=== PATIENT | female | born 1985 ===

== ENCOUNTER 2024-11-10 11:36 | Emergency (ER) | payer MEDICARE, SELFPAY ==
[2024-11-10 11:40] VITALS: BP 140/89; PULSE 118; RESP 24; TEMP 36.9; O2SAT 93
[2024-11-10 11:47] VITALS: BP 140/89; PULSE 118; RESP 24; TEMP 36.9; O2SAT 93
[2024-11-10 12:04] VITALS: BP 140/89; PULSE 118; RESP 24; TEMP 36.9; O2SAT 93
--- NOTE | 2024-11-10 12:06 | ED.GENADUL_ITS ---
Discharge Plan Disposition Patient Disposition: Home Condition: Good Discharge Details Clinical Impression: Pneumonia, Asthma exacerbation Primary Care Provider: Unknown,Unknown ED Provider: Jonathan Arthur Home Meds and New Rx's Prescriptions: New prednisone 50 mg tablet 50 mg PO DAILY Qty: 5 0RF levofloxacin 750 mg tablet 750 mg PO DAILY Qty: 6 0RF Discharge Instructions Instructions: Asthma, Adult ED, Pneumonia, Adult ED Additional Instructions: At this time your ultrasound shows evidence of pneumonia. Your heart rate and s ymptoms have improved after the breathing treatment and fluids. I do feel that your symptoms are combination of an asthma exacerbation with pneumonia. Please follow-up closely with your primary care provider for reassessment. We did have to start you on levofloxacin secondary to your previous resistance profiles as well as your allergies. If you notice any pain or tenderness in your joints or ligaments, which could be a side effect of levofloxacin, please stop the medication and return immediately for reassessment. If you notice any worsening of your symptoms, or any new symptoms such as vomiting, diarrhea, fever, chills, shortness of breath, chest pain, numbness, weakness, or fainting , please return immediately to the emergency department for reevaluation. Please follow up with your primary care provider as soon as possible for reassessment and reevaluation. As always, it was a pleasure participating in your medical care today. HPI General Date/Time Provider Initiated Documentation: 11/10/24 11:41 . HPI Narrative: This is a 38-year-old female with a past medical history of diabetes, tobacco use, asthma, who is normally seen at [facility], who has had a few episodes of pneumonia over the last 6 to 7 months. She continues to smoke despite this. She states that for the last few days she has had a cough with intermittent fever. Cough is productive. No pleuritic chest pain. No chest pressure or chest heaviness or tightness. No history of blood clot or pulmonary embolism. She is not currently on any antibiotics. She does have inhalers at home, which she states has been slightly helpful. She denies any other complaints at this time. No other modifying factors. She denies any hemoptysis. Related Data Home Medications ?Medication ?Instructions ?Recorded ?Confirmed levofloxacin 750 mg tablet 750 mg PO DAILY #6 tabs prednisone 50 mg tablet 50 mg PO DAILY #5 tabs 11/10 Previous Rx's ?Medication ?Instructions ?Recorded levofloxacin 750 mg tablet 750 mg PO DAILY #6 tabs prednisone 50 mg tablet 50 mg PO DAILY #5 tabs 11/10 Allergies Allergy/AdvReac Type Severity Reaction Status Date / Time acetaminophen (From Vicodin) Allergy Mild vomitting Verified 11/10/24 11:47 cephalexin Allergy Mild rash Verified 11/10/24 11:47 hydrocodone (From Vicodin) Allergy Mild vomitting Verified 11/10/24 11:47 latex Allergy Mild rash Verified 11/10/24 11:47 Penicillins Allergy Mild Anaphylaxis Verified 11/10/24 11:47 sulfamethoxazole (From Allergy Mild kidney Verified 11/10/24 11:47 Bactrim) failure trimethoprim (From Bactrim) Allergy Mild kidney Verified 11/10/24 11:47 failure Bleach (Sodium Hypochlorite) Allergy Anaphylaxis Verified 11/10/24 11:47 General Stated Complaint: RespSymp SARITA: 3 Exam Narrative Exam Narrative: 1.Const: Well-nourished, Well-developed, appearing stated age 2.Eyes: PERRL, no conjunctival injection, and symmetrical lids. 3.ENT: Atraumatic external nose and ears. Moist MM. Neck: Symmetric, trachea midline, No thyromegaly. 4.CVS: +S1/S2, Peripheral pulses 2+ and equal in all extremities. Brisk capillary refill in all extremities. 5.RESP: Diffuse wheezes throughout, mild crackles on the right. No rhonchi. 6.GI: Soft, Nontender/Nondistended, No hepatosplenomegaly. No guarding or rebound. 7.MSK: Normocephalic/Atraumatic, Extremities w/o deformity or ttp No cyanosis or clubbing, Normal movement of all extremities. No pitting edema or calf tenderness. 8.Skin: Warm, Dry. No rashes or lesions. 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 Sensation grossly intact, no focal neurologic deficits. 10.Psych: (AAO) x3. Appropriate mood and affect Course Vital Signs Vital signs: Vital Signs Temperature 36.9 C 11/10/24 11:40 Pulse 118 H 11/10/24 11:40 Respiratory Rate 24 11/10/24 11:40 Blood Pressure 140/89 11/10/24 11:40 Pulse Oximetry 93 11/10/24 11:40 Temperature 36.9 C 11/10/24 12:04 Pulse 118 H 11/10/24 12:04 Respiratory Rate 24 11/10/24 12:04 Blood Pressure 140/89 11/10/24 12:04 Blood Pressure Position Sitting 11/10/24 11:47 Pulse Oximetry 93 11/10/24 12:04 Oxygen Delivery Method Room Air 11/10/24 12:04 Oxygen Flow Rate 0 11/10/24 11:47 Pain Level 0 11/10/24 12:04 Medical Decision Making This is a 38-year-old female with a past medical history of diabetes, tobacco use, asthma, who is normally seen at [facility], who has had a few episodes of pneumonia over the last 6 to 7 months. She continues to smoke despite this. She states that for the last few days she has had a cough with intermittent fever. Cough is productive. No pleuritic chest pain. No chest pressure or chest heaviness or tightness. No history of blood clot or pulmonary embolism. She is not currently on any antibiotics. She does have inhalers at home, which she states has been slightly helpful. She denies any other complaints at this time. No other modifying factors. She denies any hemoptysis. Exam demonstrates well-appearing female, she is mildly tachycardic but no fever here. Bedside limited ultrasound demonstrates isolated pneumonia in the right lung macdonald. She states that that is where the pneumonia has been in the past. Last pneumonia was about 3 months ago. With the wheezes I do suspect a component of an asthma exacerbation. She is mildly tachycardic but appears mildly dehydrated as well. Heart rate in the 1 8 teens, and jumps up to the 120s to 30s when she ambulates. She has no pleuritic chest pain, no history of PE. She denies control or estrogen use. Symptoms appear inconsistent with PE otherwise. The patient states that she has been resistant to Augmentin and azithromycin in the past, and had to use levofloxacin last time. I discussed the risks and benefits of tendinopathy's from fluoroquinolone use, and she understands. Will give a dose of levofloxacin now for treatment, we will start the patient on steroids, will give a breathing treatment, monitor closely and reassess. Additionally she has multiple allergies to other antibiotics which does make treatment somewhat challenging. I do not feel that doxycycline would be an appropriate monotherapy for her at this stage. 3:30 PM Patient was given 2 L of IV fluids, breathing treatment, antibiotics and steroids. She feels much better and is requesting to go home. She states that she does not feel that she needs to be here anymore and would like to leave. Blood work did show mild white count, but she remains afebrile. Heart rate has notably improved. Electrolytes show minimally elevated potassium at 5.3, however she has no peaking of T waves on telemetry. Potassium corrected with IV fluids and nebulizer. Patient is stable for discharge. Patient does not want inpatient admission at this time. Patient will be discharged home. Discussed red flags which to return. Prescriptions for levofloxacin and prednisone have b een sent. I have extensively reviewed the treatment plan and discharge instructions with the patient. I have addressed all patient concerns at this time. The patient was made aware of what symptoms to monitor for that would warrant a return to the emergency department. Discussed the plan with the patient, they demonstrate verbal understanding and agreement with our assessment and plan at this time. The documentation in this chart was dictated using [employer] dictation software. Please excuse any dictation errors. PFSH All Active Problems (Updated 11/10/24 @ 15:40 by Jonathan Arthur DO) Asthma exacerbation (Acute) Pneumonia (Acute) Social History Smoking/Tobacco Use Status: Current every day Smoking risk assessment performed?: Yes POCUS Exam (ED) Limited Thoracic Lung Exam DATE OF EXAM: 11/10/24 TIME OF EXAM: 15:32 PROVIDER THAT PERFORMED THE STUDY: Jonathan Arthur IS THIS A REPEAT EXAM DURING THIS ENCOUNTER: No REASON FOR EXAM: Pneumonia VISUALIZED STRUCTURES: right lateral, left lateral, right posterior and left posterior PERTINENT FINDINGS/IMPRESSION: Pneumonia DIFFERENTIAL DIAGNOSES: Pneumonia and right middle lung field Exam complete
[2024-11-10] MEDS: predniSONE 20 MG TAB 60 MG PO (12:15)
[2024-11-10] MEDS: levoFLOXacin 500 MG, levoFLOXacin 250 MG 750 MG PO (12:16)
[2024-11-10] MEDS: Albuterol/Ipratropium 3 ML UPD VIAL UPD (12:16)
[2024-11-10 13:51] LABS: Abs Immature Grans 0.11 10^3/uL (0.0-0.06); Absolute Neutrophil Count 10.45 10^3/uL (1.2-6.7); BE (Venous) 2 mmol/L (-2-3); Basophils % 0.4 %; Eosinophils % 0.8 %; HCO3 (Venous) 27 mmol/L (23-28); HCT 42.6 % (36.0-46.0); HGB 13.4 g/dL (11.2-15.7); Immature Grans % 0.8 %; Lymphocytes % 19.3 %; MCH 27.1 pg (27.0-33.0); MCHC 31.5 % (32.0-36.0); MCV 86 fL (80-95); MPV 10.4 fL (8.0-11.0); Monocytes % 4.7 %; O2 Sat (Venous) 51 %; Platelet Count 324 10^3/uL (130-400); RBC 4.94 10^6/uL (3.93-5.22); RDW 15.1 % (11.7-14.6); RDW-SD 47.3 fL; TCO2 (Venous) 24 mmol/L (24-29); WBC 14.12 10^3/uL (4.4-10.8); pCO2 (Venous) 44 mmHg (41-51); pO2 (Venous) 26 mmHg
[2024-11-10] MEDS: Lactated Ringers 1,000 ML 1000 ML IV (13:53)
[2024-11-10 13:55] LABS: Absolute Basophil Count 0.06 10^3/uL (0.0-0.2); Absolute Eosinophil Count 0.11 10^3/uL (0.0-0.7); Absolute Lymphocyte Count 2.73 10^3/uL (1.2-3.4); Absolute Monocyte Count 0.66 10^3/uL (0.1-0.8)
[2024-11-10 14:18] LABS: ALT 32 U/L (14-59); AST 23 U/L (15-37); Albumin 3.5 g/dL (3.4-5.0); Alkaline Phosphatase 112 U/L (46-116); Anion Gap 9.8 mmol/L (3-11); BUN 12 mg/dL (7-18); Bilirubin, Total 0.4 mg/dL (0.2-1.0); CO2 28.2 mmol/L (21.0-32.0); CREATININE 0.9 mg/dL (0.55-1.02); Calcium 9.7 mg/dL (8.5-10.1); Chloride 95 mmol/L (98-107); Estimated GFR 84.44 (mL/min/1.73m2); Glucose 351 mg/dL (74-106); Potassium 5.3 mmol/L (3.5-5.1); Sodium 133 mmol/L (136-145); Total Protein 8.9 g/dL (6.4-8.2)
[2024-11-10 14:27] LABS: COVID-19 PCR Negative (Negative); Influenza A PCR Negative (Negative); Influenza B PCR Negative (Negative); RSV PCR Negative (Negative)
[2024-11-10 14:28] LABS: Source Nasopharynx
[2024-11-10 14:54] VITALS: BP 125/79; PULSE 115; RESP 22; O2SAT 95
[2024-11-10] MEDS: Ketorolac 15 MG/ML VIAL IVP (14:59)
[2024-11-10] MEDS: Normal Saline 1,000 ML 1000 ML IV (15:00)
[2024-11-10 15:46] VITALS: BP 128/61; PULSE 111; RESP 20; O2SAT 94
== END 2024-11-10 15:57 | disposition home or self-care (01) ==
PROVIDERS: Emergency Provider Student in an Organized Health Care Education/Training Program
DX: J18.9 Pneumonia, unspecified organism (principal); J45.901 Unspecified asthma with (acute) exacerbation; E11.9 Type 2 diabetes mellitus without complications; F17.200 Nicotine dependence, unspecified, uncomplicated; Z79.84 Long term (current) use of oral hypoglycemic drugs
CPT/HCPCS: 36415; 76604; 80053; 82805; 87637; 94640; 96361; 96374; 99285; 85025; 99284; J1885; J7512; J7620